=== PATIENT | male | born 1955 | race Caucasian/White ===

== ENCOUNTER 2019-01-16 18:14 | Emergency (ER) | payer MEDICARE, OTHER ==
--- NOTE | 2019-01-16 18:30 | EDM.PDOC ---
ED HPI GENERAL MEDICAL PROBLEM - General Chief Complaint: General Stated Complaint: SWEATING AND SHAKEY Time Seen by Provider: 01/16/19 18:29 Source of Information: Reports: Patient, Family (spouse) History Limitations: Reports: No Limitations - History of Present Illness INITIAL COMMENTS - FREE TEXT/NARRATIVE: 63-year-old male presents to the ED with his . He reports that he feels diffusely shaky and tremulous and he has been diaphoretic most of the day. The history suggests that he is suffering chronic severe insomnia to the point that he is developing some depression symptoms and associated auditory hallucinations or psychosis. He reports she's been sleep deprived for nearly a year. Trials of [id number] sleep aids made little to no difference in his ability to sleep. He was seen in the clinic yesterday by and placed on Seroquel 50 mg at bedtime and Lexapro 10 mg in the morning. He therefore took one tablet of each so far. He was outside a good portion of yesterday mowing lawn and he was outside a good portion of the day. As well. Reports his appetite is not very good and could be suffering malnutrition although he is taking potassium and magnesium supplements. He rarely drinks alcohol. He is not taking any pain medication other than the occasional Aleve for hip pain And has had multiple surgeries for also arthritic changes in his cervical spine lumbar spine and both knees have been replaced totally. He does have bilateral hip pain but not bad enough to warrant hip replacement. He is on no narcotics that he could be withdrawing from. He's been on no benzodiazepines that could be withdrawing from. Onset: Today (He has occasional days where he sweats a good deal but today is much worse than normal.) Duration: Chronic (Just worse today.) Location: Reports: Generalized (Generalized tremulousness and shakiness not able to walk on his own volition as he feels somewhat ataxic and like he had been drinking. Diffusely cool clammy and diaphoretic. Nurses did his blood sugar at bedside and was 117.) Quality: Reports: Other (Cool clammy and diffusely diaphoretic with diffuse feeling of tremulousness.) Severity: Severe Improves with: Reports: None Worsens with: Reports: None Context: Denies: Activity, Exercise, Lifting, Sick Contact, Trauma Associated Symptoms: Reports: Loss of Appetite, Malaise, Weakness, Other. Denies: Confusion, Chest Pain, Cough, cough w sputum, Diaphoresis, Fever/Chills , Headaches, Nausea/Vomiting, Rash, Seizure, Shortness of Breath, Syncope Treatments SACK [employer]ER: Reports: Other (see below) (Tremulous and feeling ataxic walking. None.) - Related Data Allergies Allergy/AdvReac Type Severity Reaction Status Date / Time No Known Allergies Allergy Verified 01/16/19 18:21 Home Meds: Home Meds ClonazePAM [KlonoPIN] 2 mg PO BEDTIME #30 tab 01/16/19 [Rx] Escitalopram [Lexapro] 10 mg PO DAILY 01/16/19 [History] QUEtiapine [SEROquel] 50 mg PO BEDTIME 01/16/19 [History] Zolpidem Tartrate [Ambien] 10 mg PO ASDIRECTED PRN #30 tablet 01/16/19 [Rx] Past Medical History Musculoskeletal History: Reports: Other (See Below) (Patient has generalized osteoarthritis. Says previous cervical neck fusion in 2 areas and 3 errors in his lumbar spine. Both knees have been replaced. Has bilateral total shoulder replacements as well.) Neurological History: Reports: Other (See Below) (Severe chronic insomnia which is now starting to cause auditory hallucinations and some degree of psychoses. History of major depression symptoms as well.) Psychiatric History: Reports: Hallucinations (Chronic insomnia and auditory hallucinations), Other (See Below) Social & Family History - Living Situation & Occupation Living situation: Reports: Occupation: Employed ED ROS GENERAL - Review of Systems Review Of Systems: See Below Constitutional: Reports: Malaise, Weakness, Fatigue, Decreased Appetite. Denies : Fever, Chills HEENT: Reports: Glasses Respiratory: Reports: Shortness of Breath. Denies: Wheezing, Pleuritic Chest Pain, Cough, Sputum Cardiovascular: Reports: Blood Pressure Problem, Dyspnea on Exertion. Denies: Chest Pain, Claudication, Edema, Lightheadedness, Orthopnea Endocrine: Reports: Fatigue (Sometimes), Other ( chronic overwhelming fatigue. chronic insomnia) GI/Abdominal: Reports: Constipation (Occasional problems with constipation), Decreased Appetite : Reports: Frequency, Other (Known BPH. Nocturia usually 2 or 3 times nightly) Musculoskeletal: Reports: Neck Pain, Shoulder Pain, Back Pain, Joint Pain (Has had bilateral total shoulder replacements. He's had surgery on his lower back with fusion and as well as in his cervical spine. Bilateral total knee replacements.) Skin: Reports: No Symptoms ( Some discomfort but are not bad enough to need replacement.) Neurological: Reports: Confusion, Dizziness (Especially today.), Tremors ( Excessive diaphoresis sweating), Difficulty Walking ( is very tremulous. occultly walking. ), Other Psychiatric: Reports: Agitation, Anxiety, Confusion, Depression, Hallucinations (Auditory hallucinations.), Other (Chronic severe insomnia.) Hematologic/Lymphatic: Reports: No Symptoms Immunologic: Reports: No Symptoms ED EXAM, GENERAL - Physical Exam Exam: See Below Exam Limited By: No Limitations General Appearance: Alert, Anxious, Moderate Distress, Other (Temperature is 35.4 which is accurate but his skin is cool and clammy. This is from diaphoresis. Resting tachycardia at 10 4/m. Respiratory 24/m due to hyperventilation. BP elevated at 180 01/12/13. To 100% on room air.) Eye Exam: Bilateral Eye: Normal Inspection Ear Exam: Right Ear: Other (Patient is suffering tinnitus and loss of hearing gradually.) Throat/Mouth: Other (Tongue is dry and coated.) Head: Atraumatic, Normocephalic Neck: Normal Inspection, Supple, Non-Tender, Limited Range of Motion. No: Carotid Bruit, Lymphadenopathy (L), Lymphadenopathy (R) Respiratory/Chest: Lungs Clear, Normal Breath Sounds, Respiratory Distress ( Mild tachypnea) Cardiovascular: Normal Peripheral Pulses, No Edema, No Gallop (Resting tachycardia 10 5/m), No Murmur, No Rub, Tachycardia Peripheral Pulses: 2+: Posterior Tibial (L), Posterior Tibial (R), Dorsalis Pedis (L), Dorsalis Pedis (R) GI/Abdominal: Normal Bowel Sounds, Soft, Non-Tender, No Organomegaly, No Abnormal Bruit, No Mass, Pelvis Stable (Male) Exam: No Hernia Back Exam: Decreased Range of Motion, Other (Well-healed scars over the lower lumbar spine.). No: CVA Tenderness (L), CVA Tenderness (R) Extremities: Other (Well-healed well-healed scars over both anterior knees compatible with total knee replacements.). No: Normal Range of Motion, Pedal Edema Neurological: Alert, Oriented, CN II-XII Intact, Normal Cognition, No Motor/ Sensory Deficits, Abnormal Gait, Other (Diffuse tremor.). No: Normal Gait ( Ataxic gait. Required assist by nursing staff), Disoriented, Slow to Respond, Unresponsive, Memory Loss Remote Events, Memory Loss Recent Events Psychiatric: Anxious Skin Exam: Intact, Cool, Diaphoretic, Other (Cool and clammy from diaphoresis.) EKG INTERPRETATION EKG Date: 01/16/19 Time: 19:16 Rhythm: NSR Rate (Beats/Min): 90 [place]: LAD-Left [place] Deviation (-53) P-Wave: Present QRS: Other (There is an RSR prime wave V1 and V2. There is also a nonspecific intraventricular conduction delay.) ST-T: Normal QT: Prolonged (QTC is moderately prolonged) EKG Interpretation Comments: Abnormal ECG Course - Vital Signs Last Recorded V/S: Last Vital Signs Temp 35.4 C 01/16/19 18:23 Pulse 104 H 01/16/19 18:23 Resp 24 H 01/16/19 18:23 BP 189/113 H 01/16/19 18:23 Pulse Ox 100 01/16/19 18:23 - Orders/Labs/Meds Orders: Active Orders 24 hr Category Date Time Status Blood Glucose Check, Bedside [RC] ONETIME Care 01/16/19 18:32 Active EKG Documentation Completion [RC] STAT Care 01/16/19 18:43 Active Dextrose 5%-0.9% NaCl [Dextrose 5%-Normal Saline] 1,000 Med 01/16/19 18:45 Active ml IV ASDIRECTED Lactated Ringers [Ringers, Lactated] 1,000 ml Med 01/16/19 20:45 Active IV .BOLUS Medication Orders Dextrose/Sodium Chloride (Dextrose 5%-Normal Saline) 1,000 mls @ 999 mls/hr IV ASDIRECTED LAI Last Admin: 01/16/19 18:53 Dose: 999 mls/hr Lactated Ringer's (Ringers, Lactated) 1,000 mls @ 999 mls/hr IV .BOLUS LAI Last Admin: 01/16/19 20:47 Dose: 999 mls/hr Labs: Laboratory Tests 01/16/19 01/16/19 01/16/19 Range/Units 18:20 18:56 18:56 WBC 6.69 (4.23-9.07) K/mm3 RBC 4.62 L (4.63-6.08) M/mm3 Hgb 15.5 (13.7-17.5) gm/L Hct 44.5 (40.1-51.0) % MCV 96.3 H (79.0-92.2) fl MCH 33.5 H (25.7-32.2) pg MCHC 34.8 (32.2-35.5) g/dl RDW Std Deviation 46.5 H (35.1-43.9) fL Plt Count 126 L (163-337) K/mm3 MPV 10.5 (9.4-12.3) fl Neut % (Auto) 77.1 H (34.0-67.9) % Lymph % (Auto) 13.6 L (21.8-53.1) % [place] % (Auto) 9.0 (5.3-12.2) % Eos % (Auto) 0.1 L (0.8-7.0) Baso % (Auto) 0.1 (0.1-1.2) % Neut # (Auto) 5.15 (1.78-5.38) K/mm3 Lymph # (Auto) 0.91 L (1.32-3.57) K/mm3 [place] # (Auto) 0.60 (0.30-0.82) K/mm3 Eos # (Auto) 0.01 L (0.04-0.54) K/mm3 Baso # (Auto) 0.01 (0.01-0.08) K/mm3 Sodium 137 (136-145) mEq/L Potassium 3.4 L (3.5-5.1) mEq/L Chloride 97 L (98-107) mEq/L Carbon Dioxide 24 (21-32) mEq/L Anion Gap 19.4 H (5-15) BUN 15 (7-18) mg/dL Creatinine 0.9 (0.7-1.3) mg/dL Est Cr Clr Drug Dosing 99.10 mL/min Estimated GFR (MDRD) > 60 (>60) mL/min BUN/Creatinine Ratio 16.7 (14-18) Glucose 131 H (80-115) mg/dL POC Glucose 117 H (80-115) mg/dL Hemoglobin A1c (4.50-6.20) % Calcium 9.6 (8.5-10.1) mg/dL Magnesium 1.7 L (1.8-2.4) mg/dl Total Bilirubin 1.8 H (0.2-1.0) mg/dL AST 255 H (15-37) U/L ALT 219 H (16-63) U/L Alkaline Phosphatase 96 (46-116) U/L C-Reactive Protein 1.1 H* (<1.0) mg/dL Total Protein 7.6 (6.4-8.2) g/dl Albumin 3.6 (3.4-5.0) g/dl Globulin 4.0 gm/dL Albumin/Globulin Ratio 0.9 L (1-2) TSH 3rd Generation (0.358-3.74) uIU/mL Ethyl Alcohol (0.00) gm% Ketones (0.0-0.3) mM 01/16/19 01/16/19 01/16/19 Range/Units 18:56 18:56 18:56 WBC (4.23-9.07) K/mm3 RBC (4.63-6.08) M/mm3 Hgb (13.7-17.5) gm/L Hct (40.1-51.0) % MCV (79.0-92.2) fl MCH (25.7-32.2) pg MCHC (32.2-35.5) g/dl RDW Std Deviation (35.1-43.9) fL Plt Count (163-337) K/mm3 MPV (9.4-12.3) fl Neut % (Auto) (34.0-67.9) % Lymph % (Auto) (21.8-53.1) % [place] % (Auto) (5.3-12.2) % Eos % (Auto) (0.8-7.0) Baso % (Auto) (0.1-1.2) % Neut # (Auto) (1.78-5.38) K/mm3 Lymph # (Auto) (1.32-3.57) K/mm3 [place] # (Auto) (0.30-0.82) K/mm3 Eos # (Auto) (0.04-0.54) K/mm3 Baso # (Auto) (0.01-0.08) K/mm3 Sodium (136-145) mEq/L Potassium (3.5-5.1) mEq/L Chloride (98-107) mEq/L Carbon Dioxide (21-32) mEq/L Anion Gap (5-15) BUN (7-18) mg/dL Creatinine (0.7-1.3) mg/dL Est Cr Clr Drug Dosing mL/min Estimated GFR (MDRD) (>60) mL/min BUN/Creatinine Ratio (14-18) Glucose (80-115) mg/dL POC Glucose (80-115) mg/dL Hemoglobin A1c 5.10 (4.50-6.20) % Calcium (8.5-10.1) mg/dL Magnesium (1.8-2.4) mg/dl Total Bilirubin (0.2-1.0) mg/dL AST (15-37) U/L ALT (16-63) U/L Alkaline Phosphatase (46-116) U/L C-Reactive Protein (<1.0) mg/dL Total Protein (6.4-8.2) g/dl Albumin (3.4-5.0) g/dl Globulin gm/dL Albumin/Globulin Ratio (1-2) TSH 3rd Generation 2.613 (0.358-3.74) uIU/mL Ethyl Alcohol (0.00) gm% Ketones 0.97 (0.0-0.3) mM 01/16/19 Range/Units 18:56 WBC (4.23-9.07) K/mm3 RBC (4.63-6.08) M/mm3 Hgb (13.7-17.5) gm/L Hct (40.1-51.0) % MCV (79.0-92.2) fl MCH (25.7-32.2) pg MCHC (32.2-35.5) g/dl RDW Std Deviation (35.1-43.9) fL Plt Count (163-337) K/mm3 MPV (9.4-12.3) fl Neut % (Auto) (34.0-67.9) % Lymph % (Auto) (21.8-53.1) % [place] % (Auto) (5.3-12.2) % Eos % (Auto) (0.8-7.0) Baso % (Auto) (0.1-1.2) % Neut # (Auto) (1.78-5.38) K/mm3 Lymph # (Auto) (1.32-3.57) K/mm3 [place] # (Auto) (0.30-0.82) K/mm3 Eos # (Auto) (0.04-0.54) K/mm3 Baso # (Auto) (0.01-0.08) K/mm3 Sodium (136-145) mEq/L Potassium (3.5-5.1) mEq/L Chloride (98-107) mEq/L Carbon Dioxide (21-32) mEq/L Anion Gap (5-15) BUN (7-18) mg/dL Creatinine (0.7-1.3) mg/dL Est Cr Clr Drug Dosing mL/min Estimated GFR (MDRD) (>60) mL/min BUN/Creatinine Ratio (14-18) Glucose (80-115) mg/dL POC Glucose (80-115) mg/dL Hemoglobin A1c (4.50-6.20) % Calcium (8.5-10.1) mg/dL Magnesium (1.8-2.4) mg/dl Total Bilirubin (0.2-1.0) mg/dL AST (15-37) U/L ALT (16-63) U/L Alkaline Phosphatase (46-116) U/L C-Reactive Protein (<1.0) mg/dL Total Protein (6.4-8.2) g/dl Albumin (3.4-5.0) g/dl Globulin gm/dL Albumin/Globulin Ratio (1-2) TSH 3rd Generation (0.358-3.74) uIU/mL Ethyl Alcohol 0.00 (0.00) gm% Ketones (0.0-0.3) mM Meds: Medications Generic Name Dose Route Start Last Admin Trade Name Freq PRN Reason Stop Dose Admin Dextrose/Sodium Chloride 1,000 mls @ 999 mls/hr 01/16/19 18:45 01/16/19 18:53 Dextrose 5%-Normal Saline IV 999 mls/hr ASDIRECTED LAI Administration Lactated Ringer's 1,000 mls @ 999 mls/hr 01/16/19 20:45 01/16/19 20:47 Ringers, Lactated IV 999 mls/hr .BOLUS LAI Administration Discontinued Medications Generic Name Dose Route Start Last Admin Trade Name Anjelica PRN Reason Stop Dose Admin Lorazepam 1 mg 01/16/19 18:44 01/16/19 18:53 Ativan IVPUSH 01/16/19 18:45 1 mg ONETIME ONE Administration - Radiology Interpretation Free Text/Narrative:: 63-year-old male presents the ED with his . He is feeling diffusely diaphoretic cool clammy and very tremulous inside. Having difficulty walking due to ataxic gait and weakness. History suggests that he spends suffering chronic severe insomnia to the point that his become depressed with psychotic tendencies with auditory hallucinations. In the clinic yesterday by Dr. Smith and was started on Seroquel 50 mg once daily at bedtime and Lexapro 10 mg in the morning which he took this morning. Prior to this he was on no medications. He doesn't drink alcohol much. He doesn't use any stimulants of any kind no street drug use. No stimulant drinks etc. Exam reveals him to be cool clammy and diaphoretic. He appears quite anxious with hyperventilation syndrome resting tachycardia and hypertension a time presentation. I believe all this is likely related to chronic insomnia. Possible mild adverse effects to new medications. Plan: IV D5 normal saline and opened. Routine labs to be collected ECG. I did give him Ativan 1 mg IV at this time. - Re-Assessments/Exams Free Text/Narrative Re-Assessment/Exam: 01/16/19 20:18 Labs reveal a normal white count at 6.69. Auto differential is 77 % neutrophils. Hemoglobin is 15.5 hematocrit of 44.5. Platelet count is normal 126,000. Sodium 137 with potassium 3.4 chloride 97 with a bicarbonate 24. And a gap is elevated at 19.4. BUN is 15 with a creatinine of 0.9. Glucose is 131. Hemoglobin A1c is 5.10. Calcium is 9.6 magnesium slightly low at 1.7. Total bilirubin is 1.8 AST is 255 ALT is 219. Alk phosphatase is 96. C-reactive protein is 1.1. Total protein is 7.6 albumin fraction 3.6 TSH is 2.613. ECG shows a nonspecific intraventricular conduction delay. Sinus rhythm in the 90s. QTc interval is moderately prolonged at 505. Unclear if this was present before he took his first dose of Seroquel. Note I cannot account for his elevated transaminases and bilirubin. He does not drink alcohol. Concern for possible Gilbert's syndrome and fatty liver disease. Perhaps an ultrasound of the liver should be entertained in the future. 01/16/19 21:23 labs revealed his upper alcohol level to be 0.00. His serum ketones did come back elevated at 0.97 and accounts for his elevated anion gap. This is been corrected with 2 L of IV fluids. Patient has chronic severe insomnia which has resulted in major depression symptoms and auditory hallucinations i.e. mild psychosis. It's impossible for me to say that some of his symptoms today are not due to adverse effects of medication although this would be difficult to prove that the Seroquel taken last night that may have caused adverse effects. He is reluctant to take it again. I'm going to therefore have him hold it or stop it for now. I'm going to place him on clonazepam 2 mg every night at bedtime to aid sleep and if he wakes up or has difficulty falling asleep you can take an Ambien 10 mg tablet as well. Almost always should induce a sleep state for 5-6 hours. Follow-up with Dr. Smith in 10-14 days time to make sure that he is getting along okay. 01/16/19 21:40 2 be discharged home as he has completed 2 L of IV fluid. He will eat a meal tonight to try and reverse his ketotic state. The fluids will have reversed a good portion of this. Departure - Departure Time of Disposition: 21:26 Disposition: Home, Self-Care 01 Condition: Fair Clinical Impression: Metabolic acidosis with increased anion gap and accumulation of organic acids Insomnia disorder Qualifiers: Insomnia type: primary Qualified Code(s): F51.01 - Primary insomnia - Discharge Information *PRESCRIPTION DRUG MONITORING PROGRAM REVIEWED*: Not Applicable *COPY OF PRESCRIPTION DRUG MONITORING REPORT IN PATIENT DELFINA: Not Applicable Prescriptions: ClonazePAM [KlonoPIN] 2 mg PO BEDTIME #30 tab Zolpidem Tartrate [Ambien] 10 mg PO ASDIRECTED PRN #30 tablet PRN Reason: Allergies Instructions: Metabolic Acidosis, Insomnia Referrals: Isidro Bruce MD [Primary Care Provider] - Forms: ED Department Discharge Additional Instructions: Evaluation the emergency room today due to generalized weakness and tremulousness with excessive diaphoresis or sweating. It was difficult to pin down the cause of this. Lab work reveals metabolic acidosis due to an accumulation of acids in your bloodstream from not eating much today. This is called ketosis. It occurs when we breakdown or fats for energy due to lack of intake of carbohydrates for energy. The accumulate they cause nausea weakness and tremulousness similar to a low blood sugar reaction. This was treated with 2 L of IV fluids which should improve the situation but you do need to eat a meal tonight before bed. Major problem identified was recent start of medication to aid sleep last night which may or may not have contributed to symptoms of difficulty walking i.e. ataxia and the tremors today. It was my suggestion therefore that this medicine be placed on hold and replaced with clonazepam 2 mg every night at bedtime to help sleep and the addition of Ambien 10 mg if you cannot fall asleep within a couple of hours and of course need further sleep may take an Ambien tablet. Over time sleep health should improve. Continue the Lexapro 10 mg every morning that Dr. Smith has prescribed as it will also help but it will take about 3 weeks to start to work. Suggest follow-up with Dr. Hall gave her in 2 weeks' time to make sure your improved. - My Orders Last 24 Hours: My Active Orders 01/16/19 18:32 Blood Glucose Check, Bedside [RC] ONETIME 01/16/19 18:43 EKG Documentation Completion [RC] STAT 01/16/19 18:45 Dextrose 5%-0.9% NaCl [Dextrose 5%-Normal Saline] 1,000 ml IV ASDIRECTED 01/16/19 20:45 Lactated Ringers [Ringers, Lactated] 1,000 ml IV .BOLUS - Assessment/Plan Last 24 Hours: My Active Orders 01/16/19 18:32 Blood Glucose Check, Bedside [RC] ONETIME 01/16/19 18:43 EKG Documentation Completion [RC] STAT 01/16/19 18:45 Dextrose 5%-0.9% NaCl [Dextrose 5%-Normal Saline] 1,000 ml IV ASDIRECTED 01/16/19 20:45 Lactated Ringers [Ringers, Lactated] 1,000 ml IV .BOLUS
[2019-01-16] MEDS ORDERED: LORazepam 2 MG/ML SDV IVPUSH ONE (18:44)
[2019-01-16] MEDS ORDERED: Dextrose 5%-0.9% NaCl 1,000 ML IV SCH (18:45)
[2019-01-16 19:11] LABS: HEMOGLOBIN A1C 5.1 % (4.50-6.20)
[2019-01-16] MEDS ORDERED: Lactated Ringers 1,000 ML IV SCH (20:45)
== END 2019-01-16 21:59 | disposition home or self-care (01) ==
LOC: JD.ED 18:14
DX: E87.2 Acidosis (principal); F51.01 Primary insomnia; F32.9 Major depressive disorder, single episode, unspecified; Z79.899 Other long term (current) drug therapy
CPT/HCPCS: 36415; 80053; 82009; 82962; 83036; 83735; 84443; 85025; 86140; 93005; 96360; 96361; 99284; G0480; J2060; J7042; J7120

== ENCOUNTER 2023-09-18 07:37 | Emergency (ER) | payer MEDICARE, OTHER ==
[2023-09-18] MEDS: Diltiazem 25 MG/5 ML SDV IVPUSH ONE (08:01)
[2023-09-18] MEDS: Sodium Chloride 0.9% 1,000 ML IV SCH (08:02)
[2023-09-18] MEDS: Diltiazem 125 MG in Sodium Chloride 0.9% 100 ML IV SCH (08:03)
[2023-09-18 08:08] LABS: BASOPHILS PERCENT AUTO 0.3 % (0.0-1.0); EOSINOPHILS ABSOLUTE AUTO 0.1 K/mm3 (0.0-0.4); EOSINOPHILS PERCENT AUTO 1.2 % (0.0-6.0); HEMATOCRIT 45.3 % (42.0-52.0); HEMOGLOBIN 15.9 gm/dl (14.0-18.0); IMMATURE GRAN ABSOLUTE AUTO 0.03 K/mm3 (0.00-0.05); IMMATURE GRAN PERCENT AUTO 0.3 % (0.0-0.4); LYMPHOCYTES ABSOLUTE AUTO 2.8 K/mm3 (1.0-4.8); LYMPHOCYTES PERCENT AUTO 26.9 % (24.0-44.0); MEAN CORPUSCULAR HEMOGLOBIN 31.1 pg (28.0-32.0); MEAN CORPUSCULAR HGB CONC 35.1 g/dl (32.0-36.0); MEAN CORPUSCULAR VOLUME 88.5 fl (83.0-99.0); MEAN PLATELET VOLUME 9.3 fl (9.4-12.4); MONOCYTES ABSOLUTE AUTO 0.5 K/mm3 (0.0-0.8); MONOCYTES PERCENT AUTO 4.8 % (0.0-8.0); NEUTROPHILS ABSOLUTE AUTO 6.8 K/mm3 (1.8-7.7); NEUTROPHILS PERCENT AUTO 66.5 % (41.0-71.0); PLATELET COUNT,PLT 282 K/mm3 (150-400); RED BLOOD CELL COUNT 5.12 M/mm3 (4.52-5.90); WHITE BLOOD CELL COUNT,WBC 10.22 K/mm3 (3.9-11.3)
[2023-09-18 08:32] LABS: A/G RATIO 0.9 (1-2); ALANINE AMINOTRANSFERASE,ALT 35 U/L (16-63); ALBUMIN 3.6 g/dl (3.4-5.0); ALKALINE PHOSPHATASE 77 U/L (46-116); ANION GAP 13.8 (5-15); ASPARTATE AMNIOTRANSFERASE,AST 35 U/L (15-37); BILIRUBIN TOTAL 0.8 mg/dL (0.2-1.0); BLOOD UREA NITROGEN,BUN 19 mg/dL (7-18); CALCIUM 9.2 mg/dL (8.5-10.1); CARBON DIOXIDE,CO2 24 mEq/L (21-32); CHLORIDE,CL 106 mEq/L (98-107); ESTIMATED GFR 81 mL/min (>60); GLUCOSE RANDOM 134 mg/dL (70-99); MAGNESIUM 1.9 mg/dL (1.8-2.4); POTASSIUM,K 3.8 mEq/L (3.5-5.1); PROTEIN TOTAL,TP 7.5 g/dl (6.4-8.2); SODIUM,NA 140 mEq/L (136-145); TROPONIN I HIGH SENSITIVITY 17 pg/mL (<=76); TSH 1.331 uIU/mL (0.358-3.74)
[2023-09-18] MEDS: Sodium Chloride 0.9% 10 ML Syringe FLUSH PRN (08:50)
[2023-09-18] MEDS: Sodium Chloride 0.9% 100 ML ONE (08:50)
[2023-09-18] MEDS: Propofol 200 MG/20 ML SDV IVPUSH ONE (10:27)
== END 2023-09-18 11:25 | disposition home or self-care (01) ==
LOC: JD.ED 07:37
DX: I48.91 Unspecified atrial fibrillation (principal); I10 Essential (primary) hypertension; Z79.899 Other long term (current) drug therapy; Z79.01 Long term (current) use of anticoagulants
CPT/HCPCS: 36415; 71045; 80053; 83735; 84443; 84484; 85025; 92960; 93005; 96365; 96366; 99285; J2704; J3490; J7030; 93010; 99284

== ENCOUNTER 2024-03-02 08:21 | Emergency (ER) | payer MEDICARE, OTHER ==
[2024-03-02 09:01] LABS: BASOPHILS PERCENT AUTO 0.5 % (0.0-1.0); EOSINOPHILS ABSOLUTE AUTO 0.1 K/mm3 (0.0-0.4); HEMATOCRIT 44.6 % (42.0-52.0); HEMOGLOBIN 15.6 gm/dl (14.0-18.0); IMMATURE GRAN ABSOLUTE AUTO 0.06 K/mm3 (0.00-0.05); IMMATURE GRAN PERCENT AUTO 0.7 % (0.0-0.4); LYMPHOCYTES ABSOLUTE AUTO 2.2 K/mm3 (1.0-4.8); LYMPHOCYTES PERCENT AUTO 25.4 % (24.0-44.0); MEAN CORPUSCULAR HEMOGLOBIN 31.2 pg (28.0-32.0); MEAN CORPUSCULAR VOLUME 89.2 fl (83.0-99.0); MEAN PLATELET VOLUME 9.2 fl (9.4-12.4); MONOCYTES ABSOLUTE AUTO 0.4 K/mm3 (0.0-0.8); NEUTROPHILS ABSOLUTE AUTO 5.9 K/mm3 (1.8-7.7); NEUTROPHILS PERCENT AUTO 68.4 % (41.0-71.0); PLATELET COUNT,PLT 295 K/mm3 (150-400); WHITE BLOOD CELL COUNT,WBC 8.66 K/mm3 (3.9-11.3)
[2024-03-02 09:27] LABS: A/G RATIO 0.8 (1-2); ALBUMIN 3.3 g/dl (3.4-5.0); ANION GAP 14.8 (5-15); BILIRUBIN TOTAL 0.4 mg/dL (0.2-1.0); BUN/CREATININE RATIO 21.1 (14-18); CALCIUM 8.8 mg/dL (8.5-10.1); CREATININE 0.9 mg/dL (0.7-1.3); EST CRCL DRUG DOSING (CG) 86.31 mL/min; MAGNESIUM 1.7 mg/dL (1.8-2.4); POTASSIUM,K 3.8 mEq/L (3.5-5.1); PROTEIN TOTAL,TP 7.5 g/dl (6.4-8.2); TSH 0.959 uIU/mL (0.358-3.74)
[2024-03-02] MEDS: Sodium Chloride 0.9% 10 ML Syringe FLUSH PRN (09:28)
[2024-03-02] MEDS: Diltiazem 25 MG/5 ML SDV IVPUSH ONE (09:28)
[2024-03-02] MEDS: Diltiazem 125 MG in Sodium Chloride 0.9% 100 ML IV SCH (09:29)
[2024-03-02] MEDS: Sodium Chloride 0.9% 1,000 ML IV SCH (09:38)
== END 2024-03-02 10:37 | disposition home or self-care (01) ==
LOC: JD.ED 08:21
DX: I48.91 Unspecified atrial fibrillation (principal); I10 Essential (primary) hypertension
CPT/HCPCS: 36415; 71045; 80053; 83735; 84443; 84484; 85025; 93005; 96361; 96374; 99285; J3490; J7030; 93010; 99284

== ENCOUNTER 2024-03-12 14:23 | Emergency (ER) | payer MEDICARE, OTHER ==
[2024-03-12 15:16] LABS: BASOPHILS PERCENT AUTO 0.2 % (0.0-1.0); EOSINOPHILS ABSOLUTE AUTO 0.2 K/mm3 (0.0-0.4); EOSINOPHILS PERCENT AUTO 1.5 % (0.0-6.0); HEMATOCRIT 35.3 % (42.0-52.0); HEMOGLOBIN 11.8 gm/dl (14.0-18.0); IMMATURE GRAN ABSOLUTE AUTO 0.11 K/mm3 (0.00-0.05); IMMATURE GRAN PERCENT AUTO 0.8 % (0.0-0.4); LYMPHOCYTES ABSOLUTE AUTO 1.5 K/mm3 (1.0-4.8); LYMPHOCYTES PERCENT AUTO 10.7 % (24.0-44.0); MEAN CORPUSCULAR HEMOGLOBIN 31.1 pg (28.0-32.0); MEAN CORPUSCULAR HGB CONC 33.4 g/dl (32.0-36.0); MEAN CORPUSCULAR VOLUME 92.9 fl (83.0-99.0); MEAN PLATELET VOLUME 8.9 fl (9.4-12.4); MONOCYTES ABSOLUTE AUTO 0.7 K/mm3 (0.0-0.8); MONOCYTES PERCENT AUTO 5.1 % (0.0-8.0); NEUTROPHILS ABSOLUTE AUTO 11.8 K/mm3 (1.8-7.7); NEUTROPHILS PERCENT AUTO 81.7 % (41.0-71.0); PLATELET COUNT,PLT 431 K/mm3 (150-400); WHITE BLOOD CELL COUNT,WBC 14.44 K/mm3 (3.9-11.3)
[2024-03-12 15:33] LABS: A/G RATIO 0.6 (1-2); ALBUMIN 2.6 g/dl (3.4-5.0); ANION GAP 11.2 (5-15); BILIRUBIN TOTAL 0.4 mg/dL (0.2-1.0); C-REACTIVE PROTEIN 5.95 mg/dL (<0.30); CALCIUM 8.5 mg/dL (8.5-10.1); EST CRCL DRUG DOSING (CG) 77.68 mL/min; POTASSIUM,K 4.2 mEq/L (3.5-5.1); PROTEIN TOTAL,TP 6.8 g/dl (6.4-8.2)
[2024-03-12] MEDS: Iopamidol 755 Mg/ML 100 ML Bottle IVPUSH ONE (15:39)
[2024-03-12] MEDS: Sodium Chloride 0.9% 10 ML Syringe FLUSH PRN (15:39)
[2024-03-12] MEDS: Sodium Chloride 0.9% 100 ML IV SCH (15:39)
[2024-03-12 15:44] LABS: LACTIC ACID 1.6 mmol/L (0.4-2.0)
[2024-03-12 16:31] LABS: CORONAVIRUS COVID-19 NAA NEGATIVE (NEGATIVE); INFLUENZA A NAA NEGATIVE (NEGATIVE); RESPIRATORY SYNCYTIAL VIR NAA NEGATIVE (NEGATIVE)
[2024-03-12] MEDS: Furosemide 40 MG/4 ML VIAL IVPUSH ONE (17:36)
[2024-03-12] MEDS: cefTRIAXone 2 GM in Sodium Chloride 0.9% 100 ML IV ONE (18:23)
[2024-03-12] MEDS: Ondansetron 4 MG/2 ML SDV IVPUSH ONE (19:25)
== END 2024-03-12 19:33 | disposition critical access hospital (66) ==
LOC: JD.ED 14:23
DX: I31.39 Other pericardial effusion (noninflammatory) (principal); I48.91 Unspecified atrial fibrillation; Z79.899 Other long term (current) drug therapy
CPT/HCPCS: 0241U; 36415; 71045; 71275; 80053; 83605; 83880; 84484; 85025; 85379; 86140; 87040; 93005; 96365; 96375; 99285; J0696; J1940; J2405; J3490; Q9967; 93010; 99283